=== PATIENT | female | born 1945 | race Caucasian/White ===

== ENCOUNTER 2022-04-19 12:41 | Outpatient (CLI) | payer MEDICARE, OTHER | END 2022-04-19 12:42 | disposition home or self-care (01) | LOC: CSHCP 12:41 | PROVIDERS: ATTEND Nurse Practitioner Adult Health | DX: R60.0 Localized edema (principal); R06.02 Shortness of breath; F17.210 Nicotine dependence, cigarettes, uncomplicated | CPT/HCPCS: 94060; 94726; 94729; 94760 ==

== ENCOUNTER 2022-05-12 12:38 | Outpatient (CLI) | payer MEDICARE, OTHER | END 2022-05-12 12:39 | disposition home or self-care (01) | LOC: CSHCT 12:38 | PROVIDERS: ATTEND Internal Medicine | DX: Z12.2 Encounter for screening for malignant neoplasm of respiratory organs (principal); F17.210 Nicotine dependence, cigarettes, uncomplicated | CPT/HCPCS: 71271 ==

== ENCOUNTER 2022-07-07 11:15 | Outpatient (CLI) | payer MEDICARE, OTHER | END 2022-07-07 11:16 | disposition home or self-care (01) | LOC: CSHMAMMO 11:15 | PROVIDERS: ATTEND Internal Medicine | DX: Z12.31 Encounter for screening mammogram for malignant neoplasm of breast (principal); Z85.43 Personal history of malignant neoplasm of ovary; Z91.89 Other specified personal risk factors, not elsewhere classified | CPT/HCPCS: 77063; 77067 ==

== ENCOUNTER 2022-08-04 06:11 | Day surgery (SDC) | payer MEDICARE, OTHER ==
[2022-08-03 12:38] VITALS: BMI 33.1
[2022-08-04] MEDS ORDERED: PROPOFOL 20 ML ONE ×2 (08:53→08:54)
== END 2022-08-04 10:27 | disposition home or self-care (01) ==
LOC: CSHSDC 06:11
PROVIDERS: ATTEND Internal Medicine Gastroenterology
PROC: 0DBC8ZZ Excision of Ileocecal Valve, Via Natural or Artificial Opening Endoscopic (ICD-10-PCS; principal; 2022-08-04)
PROC: 0DBL8ZZ Excision of Transverse Colon, Via Natural or Artificial Opening Endoscopic (ICD-10-PCS; 2022-08-04)
DX: K63.5 Polyp of colon (principal); K57.30 Diverticulosis of large intestine without perforation or abscess without bleeding; K21.9 Gastro-esophageal reflux disease without esophagitis; I10 Essential (primary) hypertension; Z86.010 Personal history of colon polyps
CPT/HCPCS: 88305; J2704

== ENCOUNTER 2023-08-10 11:13 | Outpatient (CLI) | payer MEDICARE, OTHER | END 2023-08-10 11:14 | disposition home or self-care (01) | LOC: CSHMAMMO 11:13 | PROVIDERS: ATTEND Internal Medicine | DX: Z12.31 Encounter for screening mammogram for malignant neoplasm of breast (principal); Z85.43 Personal history of malignant neoplasm of ovary; Z91.89 Other specified personal risk factors, not elsewhere classified | CPT/HCPCS: 77063; 77067 ==